=== PATIENT | female | born 2000 | race African-American/Black ===

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

== ENCOUNTER 2020-12-13 17:59 | Emergency (ER) | payer OTHER ==
[2020-12-13 18:32] VITALS: BP 148/82; PULSE 144; BMI 26.1
== END 2020-12-13 20:35 | disposition left against medical advice (07) ==
LOC: JER 17:59
DX: F41.9 Anxiety disorder, unspecified (principal)
CPT/HCPCS: 99283-25

== ENCOUNTER 2021-09-08 21:33 | Emergency (ER) | payer OTHER ==
[2021-09-08 22:06] VITALS: BP 121/49; TEMP 98.2; BMI 21.4
[2021-09-08 22:31] LABS: BASO % 0.9 % (0-2.0); EOS % 2.4 % (0-4.5); HEMATOCRIT 35.4 % (32.4-45.2); HEMOGLOBIN 11.8 GM/dL (10.7-15.3); LYMPH % 41.6 % (8-40); MCH 27.3 pg (25.7-33.7); MCHC 33.3 g/dl (32.0-36.0); MEAN CELL VOLUME 82.1 fl (80-96); MEAN PLT VOLUME 9.6 fl (7.5-11.1); MONO % 11.6 % (3.8-10.2); NEUT % 43.5 % (42.8-82.8); PLATELET COUNT 160 10^3/uL (134-434); RBC 4.31 M/mm3 (3.60-5.2)
[2021-09-08 22:35] LABS: EPI CELLS 7 /uL (0-25.1); HYALINE CASTS 0 /uL (0-3.1); PH,URINE 6.5 (5.0-8.0); URINE APPEARANCE CLEAR; URINE BACTERIA 1482 /uL (0-1359); URINE BILIRUBIN NEGATIVE (NEGATIVE); URINE COLOR YELLOW; URINE GLUCOSE (UA) NEGATIVE (NEGATIVE); URINE KETONE NEGATIVE (NEGATIVE); URINE LEUK ESTERASE TRACE (NEGATIVE); URINE NITRITE NEGATIVE (NEGATIVE); URINE PROTEIN NEGATIVE (NEGATIVE); URINE RBC 3 /uL (0-23.9); URINE UROBILINOGEN 0.2 mg/dL (0.2-1.0); URINE WBC 19 /uL (0-25.8)
[2021-09-08 22:36] LABS: HCG,QUALITATIVE URINE Negative
[2021-09-08 23:02] LABS: CHLORIDE 108 mmol/L (98-107); SODIUM 140 mmol/L (136-145)
[2021-09-08 23:05] LABS: ALBUMIN 3.6 g/dl (3.4-5.0); ANION GAP 3 MMOL/L (8-16); BLOOD UREA NITROGEN 12.9 mg/dL (7-18); CO2 29 mmol/L (21-32); GLUCOSE,RANDOM 76 mg/dL (74-106); MAGNESIUM 2.1 mg/dL (1.8-2.4)
[2021-09-08 23:08] LABS: CREATININE 0.9 mg/dL (0.55-1.3); SGOT/AST 14 U/L (15-37); SGPT/ALT 13 U/L (13-61)
[2021-09-08 23:09] LABS: BILIRUBIN,TOTAL 0.4 mg/dL (0.2-1)
[2021-09-08 23:10] LABS: TOT PROT 7.5 g/dl (6.4-8.2)
[2021-09-08 23:11] LABS: ALK PHOS 48 U/L (45-117)
[2021-09-09] MEDS ORDERED: ACETAMINOPHEN 1000 MG/100 ML VIAL IVPB ONE (00:04)
[2021-09-09] MEDS ORDERED: LIDOCAINE 5% TOPICAL PATCH TP ONE (00:04)
[2021-09-09] MEDS ORDERED: LACTATED RINGERS SOLUTION 1000 ML INFUS.BAG IV ONE (00:05)
[2021-09-09] MEDS ORDERED: ACETAMINOPHEN 325 MG TABLET (FP) ONE (01:13)
[2021-09-09] MEDS ORDERED: LIDOCAINE 5% TOPICAL PATCH ONE (01:13)
[2021-09-09 01:21] VITALS: PULSE 98
[2021-09-09] MEDS ORDERED: LIDOCAINE PATCH REMOVAL MC SCH (22:00)
== END 2021-09-09 01:23 | disposition home or self-care (01) ==
LOC: JER 21:33
PROC: 3E0333Z Introduction of Anti-inflammatory into Peripheral Vein, Percutaneous Approach (ICD-10-PCS; principal; 2021-09-08)
DX: R07.9 Chest pain, unspecified (principal)
CPT/HCPCS: 36415; 71046-TC-FY; 80053; 81003; 83735; 84484; 84703; 85025; 93005; 93010; 99285-25; J0131